=== PATIENT | female | born 1970 | race African-American/Black ===

== ENCOUNTER 2020-12-06 20:48 | Observation (INO) | payer OTHER ==
[2020-12-06 23:45] VITALS: BMI 43.1
[2020-12-06] MEDS ORDERED: Nitroglycerin 0.4 MG TAB (25 Tab Bottle) SL PRN (23:49)
[2020-12-06] MEDS ORDERED: Acetaminophen 325 MG TAB PO PRN (23:49)
[2020-12-06] MEDS ORDERED: Ondansetron PF 4 MG/2 ML Vial IVP PRN (23:49)
[2020-12-07 01:28] LABS: Troponin I Less than 0.010 ng/mL (< 0.028)
[2020-12-07 04:26] LABS: #Basophils 0.1 thou/uL (0.0-0.2); #Eosinphils 0.4 thou/uL (0.0-0.7); #Lymphocytes 3.8 thou/uL (1.20-3.40); #Monocytes 0.6 thou/uL (0.11-0.59); #Neutrophils 7.4 thou/uL (1.40-6.50); %Basophils 0.9 % (0.0-1.0); %Eosinophils 3.5 % (0.0-10.0); %Lymphocytes 30.7 % (21.0-51.0); %Monocytes 4.9 % (0.0-10.0); Hemoglobin 11.3 g/dL (12.0-16.0); Mean Corpuscular Hemoglobin 29.1 pg (27.0-31.0); Mean Corpuscular Volume 88.1 fL (78.0-98.0); Mean Platelet Volume 10.2 fL (7.4-10.4); Platelet Count 234 thou/uL (130-400); RBC Distribution Width 13.7 % (11.5-14.5); Red Blood Cell (RBC) Count 3.89 mill/uL (4.20-5.40); White Blood Cell (WBC) Count 12.3 thou/uL (4.8-10.8)
[2020-12-07 04:43] LABS: Anion Gap 10 mmol/L (10-20); BUN (Urea Nitrogen) 9 mg/dL (7.0-18.7); Calc. Creatinine Clearance 162 mL/min (70-130); Calcium 9.5 mg/dL (7.8-10.44); Carbon Dioxide 24 mmol/L (22-29); Chloride 107 mmol/L (98-107); Glucose 112 mg/dL (70-105); Potassium 3.6 mmol/L (3.5-5.1); Sodium 137 mmol/L (136-145)
[2020-12-07 04:50] LABS: Troponin I Less than 0.010 ng/mL (< 0.028)
[2020-12-07] MEDS: Metoprolol Tartrate 25 MG TAB PO SCH ×2 (07:35→20:06)
[2020-12-07] MEDS ORDERED: Regadenoson 0.4 MG/5 ML SYRINGE ONE (08:55)
[2020-12-07] MEDS: Aspirin Chewable 81 MG TAB PO SCH (09:31)
[2020-12-07 13:08] LABS: SARS-CoV-2 PCR by NAA Not Detected (NotDetected)
[2020-12-07] MEDS ORDERED: Atorvastatin Calcium 20 MG TAB PO SCH (21:00)
[2020-12-08 04:46] LABS: #Basophils 0.1 thou/uL (0.0-0.2); #Eosinphils 0.4 thou/uL (0.0-0.7); #Monocytes 0.4 thou/uL (0.11-0.59); #Neutrophils 5.7 thou/uL (1.40-6.50); %Basophils 0.6 % (0.0-1.0); %Eosinophils 4.1 % (0.0-10.0); %Monocytes 4.5 % (0.0-10.0); %Neutrophils 59.8 % (42.0-75.0); Hemoglobin 12.5 g/dL (12.0-16.0); Mean Corpuscular HGB CONC 34.2 g/dL (32.0-36.0); Mean Corpuscular Volume 87.8 fL (78.0-98.0); Mean Platelet Volume 10.1 fL (7.4-10.4); Platelet Count 230 thou/uL (130-400); RBC Distribution Width 13.8 % (11.5-14.5); Red Blood Cell (RBC) Count 4.17 mill/uL (4.20-5.40); White Blood Cell (WBC) Count 9.6 thou/uL (4.8-10.8)
[2020-12-08 05:58] LABS: Anion Gap 11 mmol/L (10-20); BUN (Urea Nitrogen) 10 mg/dL (7.0-18.7); Calc. Creatinine Clearance 154 mL/min (70-130); Calcium 9.6 mg/dL (7.8-10.44); Carbon Dioxide 25 mmol/L (22-29); Chloride 106 mmol/L (98-107); Glucose 84 mg/dL (70-105); Potassium 3.7 mmol/L (3.5-5.1); Sodium 138 mmol/L (136-145)
[2020-12-08] MEDS ORDERED: Loperamide HCl 2 MG CAP PO PRN (07:44)
[2020-12-08] MEDS ORDERED: Loratadine 10 MG TAB PO PRN (07:44)
[2020-12-08] MEDS ORDERED: Zolpidem Tartrate 5 MG TAB PO PRN (07:44)
[2020-12-08] MEDS ORDERED: Calcium Carbonate 500 MG ChewTAB PO PRN (07:44)
[2020-12-08] MEDS ORDERED: hydrALAZINE 20 MG/ML VIAL SLOW IVP PRN (07:44)
[2020-12-08] MEDS ORDERED: GUAIFENESIN SF SOLN 200 MG/10 ML UDCUP PO PRN (07:44)
[2020-12-08] MEDS ORDERED: Sodium Chloride 0.65% Nasal 44 ML BOT EA NARE PRN (07:44)
[2020-12-08] MEDS ORDERED: Ondansetron ODT 4 MG TAB PO PRN (07:44)
[2020-12-08] MEDS ORDERED: Cepastat Lozenges 1 LOZ PO PRN (07:44)
[2020-12-08] MEDS ORDERED: Benzonatate 100 MG CAP PO PRN (07:44)
[2020-12-08] MEDS ORDERED: Hydrocerin (Eucerin) Cream 120 gm Jar TOP PRN (07:44)
[2020-12-08] MEDS ORDERED: Artificial Tear Sol 15 ML BOT EA EYE PRN (07:44)
[2020-12-08 08:28] VITALS: BP 126/60; TEMP 98.7
[2020-12-08] MEDS: Metoprolol Tartrate 25 MG TAB PO SCH (09:25)
[2020-12-08] MEDS: Aspirin Chewable 81 MG TAB PO SCH (09:25)
== END 2020-12-08 11:15 | disposition home or self-care (01) ==
LOC: 2NO 20:48
PROVIDERS: ADMIT Internal Medicine; ATTEND Internal Medicine
DX: I20.0 Unstable angina (principal); I10 Essential (primary) hypertension; E78.2 Mixed hyperlipidemia; E66.01 Morbid (severe) obesity due to excess calories; Z68.41 Body mass index [BMI] 40.0-44.9, adult; Z79.82 Long term (current) use of aspirin; Z79.899 Other long term (current) drug therapy; Z88.0 Allergy status to penicillin; Z88.5 Allergy status to narcotic agent; Z20.822 Contact with and (suspected) exposure to COVID-19
CPT/HCPCS: 36415; 78452; 80048; 84484; 85025; 93017; A9500; G0378; J2785; U0003; U0005